=== PATIENT | male | born 1940 | race Caucasian/White ===

== ENCOUNTER 2016-09-13 04:18 | Observation (INO) ==
--- NOTE | 2016-09-13 04:24 | Emergency Department Note ---
Disposition Clinical Impression: Atypical chest pain Disposition: Admitted As Inpatient Condition: Fair Instructions: Chest Pain (ED) Referrals: Sreekanth Stokes MD [Primary Care Provider] - Time of Disposition: 05:14 ([place]) Chest Pain HPI - General Stated Complaint: Chest pain Time Seen by Provider: 09/13/16 04:20 Source: patient Mode of arrival: ambulatory Limitations: no limitations Vital Signs Reviewed: Yes Nursing Notes Reviewed: Yes - History of Present Illness HPI Narrative: Midsternal chest pain approximately half an hour prior to arrival did take an aspirin which did relieve it denies any nausea vomiting or diaphoresis patient is currently asymptomatic patient denies previous history of heart problems last stress test was greater than 20 years ago he denies fever chills cough cold of [place] symptoms numbness [place] weakness recent weight gain or weight loss he denies pain or discomfort with activity he did tell me that is a couple days ago he had an episode where he had left arm pain but no radiation up into the neck to the jaw but could not explain it went away when he rested he denies fever chills or any additional complaints tired Pt complaint: chest pain Onset (ago): hour(s) Duration: constant Onset: during rest Pain Location: substernal Severity: moderate Severity scale (1-10): 4 Quality: tightness, aching Pain Radiation: none Improves with: nothing Worsens with: nothing Associated symptoms: Denies: nausea, vomiting, diaphoresis, dyspnea, sense of impending doom, syncope, palpitations, fever, cough, leg swelling Treatments prior to arrival chest pain: aspirin - Related Data Home Medications Medication Instructions Recorded Confirmed Aspirin [Lo-Dose Aspirin EC] 81 mg PO QDPC 09/13/16 09/13/16 Allergies Allergy/AdvReac Type Severity Reaction Status Date / Time Iodinated Contrast Media - Allergy Hives Verified 09/13/16 04:28 Oral and Sulfa (Sulfonamide Allergy Itching Verified 09/13/16 04:27 Antibiotics) All systems ED: reviewed and negative except as stated. Constitutional: Denies: fever, chills Eyes: Denies: eye discharge ENT ED: Denies: throat pain Cardiovascular: Reports: chest pain Respiratory: Denies: cough, dyspnea Gastrointestinal: Denies: abdominal pain, nausea, vomiting Genitourinary: Denies: urgency Musculoskeletal: Denies: neck pain Integumentary: Denies: abrasion Neurological: Denies: headache Psychiatric: Denies: anxiety Endocrine: Denies: fatigue Hematological/Lymphatic: Denies: easy bleeding Allergic/Immunologic: Denies: urticaria Physical Exam - General Limitations: no limitations General appearance: alert, in no apparent distress, anxious - Head Head exam: atraumatic, normocephalic, normal inspection - Eye Eye exam: Present: normal appearance, PERRL, EOMI - ENT ENT exam: normal exam, normal oropharynx, mucous membranes moist, normal external ear exam - Neck Neck exam: Present: normal inspection, full ROM - Chest Chest inspection: Present: normal inspection, symmetric chest wall rise - Respiratory Respiratory exam: Present: normal lung sounds bilaterally - Cardiovascular Cardiovascular exam: Present: regular rate, normal rhythm, normal heart sounds - Abdominal Exam Abdominal exam: Present: soft, Non-Tender, normal bowel sounds. Absent: mass, pulsatile mass - Expanded Upper Extremity Exam Shoulder exam: Present: normal inspection, full ROM Arm exam: Present: normal inspection, full ROM Elbow exam: Present: normal inspection, full ROM Forearm/Wrist exam: Present: normal inspection, full ROM Hand exam: Present: normal inspection, full ROM Vascular exam: Normal: capillary refill, radial pulse - Expanded Lower Extremity Exam Hip/Pelvis exam: Present: normal inspection, full ROM Upper leg exam: Present: normal inspection, full ROM Knee exam: Present: normal inspection, full ROM Lower leg exam: Present: normal inspection, full ROM Ankle exam: Present: normal inspection, full ROM Foot/toe exam: Present: normal inspection, full ROM Neurovascular/Tendon exam: Present: normal capillary refill, normal fine/light touch. Absent: motor deficit, sensory deficit, tendon deficit Gait: observed and normal - Back Exam Back exam: Present: normal inspection, full ROM. Absent: muscle spasm - Neurological Exam Neurological exam: Present: alert, oriented X3, CN II-XII intact, normal gait - Psychiatric Psychiatric exam: Present: normal affect, normal mood - Skin Skin exam: Present: warm, dry, intact, normal color Course Course Narrative: She triaged directly to the bed EKG immediately done C and 7 PT PTT troponin and BNP ordered chest x-ray EKG has been reviewed patient is very taken aspirin prior to arrival patient is currently asymptomatic patient maintained on monitor Vital Signs Temperature 97.6 F 09/13/16 04:18 Pulse Rate 60 09/13/16 04:18 Respiratory Rate 18 09/13/16 04:18 Blood Pressure 172/99 09/13/16 04:18 O2 Sat by Pulse Oximetry 94 09/13/16 04:18 Temperature 97.6 F 09/13/16 04:18 Pulse Rate 60 09/13/16 04:18 Respiratory Rate 18 09/13/16 04:18 Blood Pressure 172/99 09/13/16 04:18 O2 Sat by Pulse Oximetry 94 09/13/16 04:18 Oxygen Delivery Oxygen Delivery Room Air Chest Pain - MDM Narrative Medical decision making narrative: gi pulmonary etiology - Differential Diagnosis Likely: atypical chest pain, chest pain - Medical Records Medical records reviewed: Yes I reviewed the patient's medical records. - Lab Data Lab results reviewed: Yes I reviewed the patient's lab results. - Radiology Data Radiology results reviewed: Yes I reviewed the patient's radiology results. Normal sinus rhythm rate 61 OK 180 QRS 109 Qt 405 access 11 - EKG Data EKG attestation: Yes I reviewed and interpreted this EKG. Heart Score - Score History: Moderately Suspicious EKG: Non Specific repolarisation Disturbance Age: Greater than 65 Risk Factors: 1-2 risk factors Troponin: Less than normal limit HEART Score Total: 5 Critical Care Time Critical Care Time: No
[2016-09-13 04:38] LABS: Basophils % 0.5 %; Eosinophils % 12.9 %; Hemoglobin 13.6 g/dL (12.9-16.9); Immature Granulocytes % 0.1 % (0-4); Lymphocytes # 2.1 K/mcL (0.6-4.6); Lymphocytes % 26.5 %; Mean Corpuscular HGB Conc 33.2 g/dL (31.6-35.5); Mean Corpuscular Hemoglobin 28.7 pg (28.0-33.3); Mean Corpuscular Volume 86.5 fL (83.0-100.0); Monocytes # 0.9 K/mcL (0.0-1.3); Monocytes % 10.8 %; Neutrophils # 3.9 K/mcL (1.6-8.9); Platelet Count 257 K/mcL (140-400); Red Blood Count 4.74 M/mcL (4.19-5.50); Red Cell Distribution Width 14.4 % (11.5-14.5); Segmented Neutrophils % 49.2 %
[2016-09-13 04:46] LABS: Prothrombin Time 11.2 Seconds (9.4-12.1)
[2016-09-13 04:49] LABS: Activated Partial Thrombo Time 29.2 Seconds (26.0-36.0)
[2016-09-13 04:56] LABS: BUN/Creatinine Ratio 14 (6-26); Blood Urea Nitrogen 17 mg/dL (8-26); Calcium 8.8 mg/dL (8.6-10.8); Carbon Dioxide 20 mEq/L (19-29); Chloride 109 mEq/L (98-109); Glucose 113 mg/dL (70-99); Osmolality,Calculated 294 (280-300); Potassium 3.9 mEq/L (3.5-4.5); Sodium 141 mEq/L (136-145); eGFR For African Americans > 60 (> 60); eGFR For Non-African Americans 57 (> 60)
[2016-09-13] MEDS ORDERED: Naloxone 0.4 MG/ML INJ IVP PRN (06:14)
--- NOTE | 2016-09-13 07:14 | Electrocardiograph Report ---
[address] [address] Test Date: 2016-09-13 Pat Name: Myron [place] Department: [id number] Room: [facility] Gender: M Rating Clerk: : 1940 Requested By: Maryam Fitzpatrick Order Number: [id number] Reading MD: Prem Herrera MD Measurements Intervals [place] Rate: 60 P: 151 CA: 172 QRS: 169 QRSD: 109 T: 168 QT: 399 QTc: 399 Interpretive Statements SINUS RHYTHM ARM LEADS REVERSED Electronically Signed On 09-13-2016 7:12:34 EDT by Prem Herrera MD
[2016-09-13] MEDS ORDERED: Aspirin Enteric Coated 81 MG Tablet PO SCH (09:00)
--- NOTE | 2016-09-13 12:16 | Internal Med History&Physical ---
Date of Encounter: 09/13/16 Time of Encounter: 11:40 Assessment and Plan (1) Chest pain Current visit: Yes Status: Acute Doubt myocardial ischemic origin. Repeat cardiac enzymes have been ordered through emergency room. Further workup will be done as needed. Qualifiers: Chest pain type: unspecified Qualified Code(s): R07.9 - Chest pain, unspecified Internal Medicine - H&P: HPI Chief complaint: Chest discomfort Admitted From: Home Plans for Post Hospital Care: Home History of present illness: Mr. Michelle is a 75 year old male who came to emergency room stating he developed discomfort while sitting on the toilet approximately 0230 today. He describes his discomfort as a "pressure" or "constriction" which was gradual in onset. It seemed to improve when he stood up. There was no cough or dyspnea associated. It did not resolve completely however so at approximately 0400 he took 2 aspirin 325 mg pills. There seemed to be some further improvement after a few minutes but he decided to come to emergency room. He was evaluated and admitted to [facility] floor for ongoing care needs. He states he is pain-free at this time. He denies previous similar episodes of chest discomfort. He does not get angina or anginal equivalents when he does exertional activities. He states he has been able to do work in his attic and carry alterable 24 pound bags up a flight of steps in the past few days. He has a history of hypertension. He denies heart attack, heart failure DVT or pulmonary embolus. He thinks had an exercise stress test approximately 30 years ago. He has not had a heart catheterization. Past Med Surg Social Fam HX - Past Medical History Medical history: seizures Psychiatric history: no psych history - Social History Smoking Status: Never smoker Smokeless Tobacco Status: No Alcohol use: occasionally Drug use: none - Family History Father Hx Family Cardiac Disorders: Yes Internal Medicine - H&P: Meds Aspirin [Lo-Dose Aspirin EC] 81 mg PO QDPC 09/13/16 [History] Allergies Iodinated Contrast Media - Oral and Allergy (Verified 09/13/16 04:28) Hives Sulfa (Sulfonamide Antibiotics) Allergy (Verified 09/13/16 04:27) Itching All Systems PM: A 10-system review of systems was performed and is negative for pertinent findings except as documented above in the HPI. Review of systems: Gen.: He states his weight has been stable the past few months Cardiovascular: As per history of present illness Respiratory: He is a lifelong nonsmoker and has no known chronic lung disease GI: Denies disorders of his liver gallbladder or exocrine pancreas : He has CKD stage III. He denies other kidney bladder prostate disorders Neurologic: He states he had a seizure in 1981, 1992, and 1999. The etiology was never determined. He was never prescribed anti-epileptic drugs. He denies large distribution strokes. Endocrine: He denies diabetes thyroid disease or hyperlipidemia Hematology/oncology: He denies blood disorders cancers or anemia Psychiatric: He denies anxiety depression or other mental health issues Musk skeletal: He has minimal DJD pain but denies gout or other bone joint or muscle disorders. - Constitutional Vitals: Temp Pulse Resp BP Pulse Ox 97.6 F 62 16 136/73 95 09/13/16 10:24 09/13/16 10:24 09/13/16 10:24 09/13/16 10:24 09/13/16 10:24 Exam: Gen.: He is a well-developed well-nourished male who appears in no acute distress at present time. He states he is pain-free HEENT: Head is atraumatic and normocephalic. Eyes: EOMI. There is no scleral icterus. Mouth: Mucosa is moist. Neck: Supple and nontender. There is no thyromegaly or adenopathy noted. Heart: Regular without murmurs gallops or ectopics. Lungs: No wheezes or crackles are heard. Chest: He is not tender in his chest wall to palpation Abdomen: Soft and nontender. No masses or guarding noted. Exam is limited because he is in the seated position. Extremities: There is no cyanosis edema or clubbing noted. Neurologic: Mental status: He is talkative and a good historian. Cranial nerves : Smile is symmetric. Forehead wrinkles bilaterally. Tongue protrudes midline. EOMI. Motor: There is no pronator drift. Cerebellar: Finger to nose is intact bilaterally. Skin: Warm and dry. Internal Med - H&P Results - Labs CBC & Chem 7: 09/13/16 04:30 09/13/16 04:30 Labs: Cardiac Enzymes 09/13/16 Range/Units 09:54 Troponin I 0.01 (0-0.03) ng/mL
[2016-09-13 14:21] VITALS: BP 165/77
--- NOTE | 2016-09-13 17:02 | Discharge Summary ---
Date of Encounter: 09/13/16 Time of Encounter: 16:50 - Discharge Diagnosis (1) Chest pain Priority: Primary Status: Resolved Qualifiers: Chest pain type: unspecified Qualified Code(s): R07.9 - Chest pain, unspecified - Discharge Medications Home Medications: Aspirin [Lo-Dose Aspirin EC] 81 mg PO QDPC 09/13/16 [History] Allergies/Adverse Reactions: Allergies Iodinated Contrast Media - Oral and Allergy (Verified 09/13/16 04:28) Hives Sulfa (Sulfonamide Antibiotics) Allergy (Verified 09/13/16 04:27) Itching Date of admission: 09/13/16 06:11 Primary care physician: Sreekanth Stokes MD - Patient Status Disposition: Home, Self-Care Condition: Fair Functional capacity at discharge: independent ambulation Overall status at discharge: patient is progressing back to baseline - Discharge Instructions Follow Up With: Sreekanth Stokes MD [Primary Care Provider] - 1 week Forms: ED Satisfaction Letter - Diet and Activity Activity: resume usual activities as tolerated Diet: advance to your usual diet Hospital course: Mr. Michelle is a 75 year old male who came to emergency room stating he developed discomfort while sitting on the toilet approximately 0230 today. He describes his discomfort as a "pressure" or "constriction" which was gradual in onset. It seemed to improve when he stood up. There was no cough or dyspnea associated. It did not resolve completely however so at approximately 0400 he took 2 aspirin 325 mg pills. There seemed to be some further improvement after a few minutes but he decided to come to emergency room. He was evaluated and admitted to [facility] for ongoing care needs. Initial orders were written by the emergency room physician. I saw him on September 13 and performed the history and physical. Repeat cardiac enzymes showed no evidence of myocardial damage. When I saw him I did not think the pain was likely be of myocardial ischemic origin. The etiology of the pain was not determined with certainty. When I saw him again the afternoon of September 13 he felt back to his baseline and stable for discharge home. He will follow his PCP Dr. Stokes within 1 week. - Time Spent with Patient Total time spent providing and/or coordinating discharge services: - Constitutional Vitals: Temp Pulse Resp BP Pulse Ox 98.4 F 66 16 165/77 96 09/13/16 14:00 09/13/16 14:00 09/13/16 14:00 09/13/16 14:00 09/13/16 14:00
== END 2016-09-13 17:35 | disposition home or self-care (01) ==
LOC: EMEROOPIK 04:18 → INPPIK 04:18
PROVIDERS: ADMIT Internal Medicine; ATTEND Internal Medicine